=== PATIENT | female | born 1940 | race Caucasian/White ===

== ENCOUNTER → 2016-03-08 | Outpatient (CLI) | payer BC ==
[~2016-03-08] MED LIST: ASPCH81X PO; CALC500C70 PO; CLB/200 PO; DIPH25CA65 PO; ESCI10TA17 PO; GLUCTAB7 PO; MULT-506 PO; OMEGCAP2 PO; PRED1SUS OPL; SENNTAB23 PO
--- NOTE | 2016-03-08 16:27 | MAMMOGRAPHY REPORT ---
BILATERAL DIGITAL SCREENING MAMMOGRAM WITH CAD: 03/08/2016 CLINICAL HISTORY: Routine screening. Patient has no complaints. TECHNIQUE: Current study was also evaluated with a Computer Aided Detection (CAD) system. Bilatera l CC and MLO views were obtained. COMPARISON: Comparison is made to exams dated: 03/01/2015 mammogram, 02/28/2014 mammogram, 02/25/2013 m ammogram, 02/25/2012 mammogram, 02/05/2011 mammogram - [facility], and 06/14/2008. BREAST COMPOSITION: There are scattered areas of fibroglandular density in both breasts. FINDINGS: No suspicious masses, calcifications, or areas of architectural distortion are noted in e ither breast. There has been no significant interval change compared to prior exams. Scattered bilat eral benign-appearing calcifications are not significantly changed. Asymmetry in the right lateral breast on the cc view is stable dating back to at least the 2007 exam. IMPRESSION: ACR BI-RADS CATEGORY 2: BENIGN There is no mammographic evidence of malignancy. A 1 year screening mammogram is recommended. The p atient will receive written notification of the results. Approximately 10% of breast cancers are not detected with mammography. A negative mammographic repor t should not delay biopsy if a clinically suggestive mass is present. Candy Larry M.D. /:03/08/2016 14:20:22 Order Fulfillment Specialist: Tami NOR, M, [facility] letter sent: Normal 1/2 BI-RADS Code: ACR BI-RADS Category 2: Benign
== END | disposition home or self-care (01) ==
LOC: C.MAMM 13:59
PROVIDERS: ATTEND Obstetrics & Gynecology
DX: Z12.31 Encounter for screening mammogram for malignant neoplasm of breast (principal)

== ENCOUNTER → 2016-04-09 | Outpatient (CLI) | payer BC | END | disposition home or self-care (01) | LOC: C.LAB1850 14:08 | PROVIDERS: ATTEND Internal Medicine Infectious Disease | DX: Z20.5 Contact with and (suspected) exposure to viral hepatitis (principal) ==

== ENCOUNTER → 2016-05-01 | Day surgery (SDC) | payer BC ==
[2016-04-17 13:54] VITALS: Ht 156.2 cm; Wt 61.4 kg
[~2016-05-01] VITALS: Ht 156.2 cm; Wt 61.4 kg
[~2016-05-01] MED LIST changes: +500ML BSS 0.3ML EPI 1:1000PF IRRIG ONE; +ACETAMINOPHEN 325 MG TAB PO PRN; +AMVISC PLUS 0.8ML SYRINGE INT OCU ONE; +ATROPINE SULFATE 0.1 MG/ML 5ML SYR IV PRN; +AcetaZOLAMIDE 250 MG TAB PO SCH; +BETAXOLOL HCL 0.25% OP SUSP PER DROP CHARGE OPL SCH; +BRIMONIDINE TART 0.2% OP SOLN PER DROP CHARGE ONE; +BSS FLUSH ONE; +ENDOCOAT 0.85ML SYRINGE INT OCU ONE; +EpINEphrine INJ 1MG/ML AMP 1 MG/ML AMP ONE; +FENTANYL CITRATE INJ 50 MCG/1 ML 2 ML VIAL IV PRN; +LACTATED RINGER'S 1000ML 500 ML IV SCH; +LIDOCAINE 4% OP SOLN DROP CHARGE ONE; +LIDOCAINE 4% OP SOLN DROP CHARGE OPL SCH; +LIDOCAINE HCL 1% MPF 2 ML VIAL ONE; +MIDAZOLAM HCL 1 MG/ML 2ML VIAL ONE; +MIX: 4ML BSS 1ML EPI 1:1000 PF INSTIL ONE; +MOXIFLOXACIN OPH SOLN PER DROP CHARGE ONE; +OCUCOAT 1 ML SOLN IO ONE; +ONDANSETRON INJ 2 MG/ML 2 ML VIAL IV PRN; +ONDANSETRON INJ 2 MG/ML 2 ML VIAL ONE; +POVIDONE-IODINE OP SOLN 30 ML BTL ONE; +PROPARACAINE 0.5% OP SOLN PER DROP CHARGE OPL SCH; +TOBRAMYCIN/DEXAMETHASONE OPH OINT PER APPLN CHARGE ONE
--- NOTE | 2016-05-01 07:30 | History & Physical Bridge - SC ---
H&P Re-Evaluation Bridge Note: I have examined the patient, reviewed the History & Physical and in the interval since the performance of the History & Physical I have noted the following changes of clinical significance: No changes noted
[2016-05-01] MEDS: PHENYLEPHRINE HCL 2.5% OP SOLN PER DROP CHARGE OPL SCH ×2 (08:11→08:16)
[2016-05-01] MEDS: TROPICAMIDE 1% OP SOLN PER DROP CHARGE OPL SCH ×2 (08:12→08:17)
[2016-05-01] MEDS: CYCLOPENTOLATE HCL 1% OP SOLN PER DROP CHARGE OPL SCH ×2 (08:13→08:18)
[2016-05-01] MEDS: MOXIFLOXACIN OPH SOLN PER DROP CHARGE OPL SCH ×2 (08:14→08:24)
--- NOTE | 2016-05-01 08:59 | Discharge Instructions-SurgCtr ---
Discharge Instructions Date of Service May 01, 2016. Visit Reason for Visit: Cataract Left Eye Discharge Discharge Diagnosis / Problem: lens implant left eye Discharge Goals Goal(s): Improve function Activity Recommendations Activity Limitations: resume your previous activity Lifting Limitations: no more than 10 pounds Exercise/Sports Limitations: gradually increase as tolerated May Resume Sexual Activity: when tolerated Shower/Bathe: tomorrow Driving or Machine Use: resume 1 day after discharge Anesthesia . Post Anesthesia Instructions: If you have had General Anesthesia or IV Sedation: * Do not drive today. * Resume driving when surgeon permits. * Do not make important decisions or sign legal documents today. * Call surgeon for: 1. Temperature elevations greater than 101 degrees F. 2. Uncontrollable pain. 3. Excessive bleeding. 4. Persistent nausea and vomiting. 5. Medication intolerance (nausea, vomiting or rash). * For nausea and vomiting use only clear liquids such as: tea, soda, bouillon until nausea subsides, then gradually increase diet as tolerated. * If you have any concerns or questions, call your surgeon's office. If physician is unavailable and it is an emergency, call 911 or go to the nearest emergency room. . Instructions / Follow-Up Instructions / Follow-Up ACTIVITY RECOMMENDATIONS: * Light activities. * Mild irritation and blurred vision are common for the first few days. * You may walk outside, read, watch television. * Redness around the white part of the eye is common. MEDICATIONS: Resume previous medications unless instructed otherwise by your surgeon. * Take white Diamox (Acetazolamide) tablet at 1 pm today. Start all eye drops at 1 pm today: * Eye drops (today and tomorrow): Prednisone - one drop in operative eye every 3 hours while awake Ofloxacin - one drop in operative eye every 3 hours while awake SPECIAL CARE INSTRUCTIONS: * Tape plastic shield over eye to sleep at night. Call your doctor at with any concerns or problems. FOLLOW UP VISIT: Follow-up with Dr Kang at [place] office as scheduled. Diet Recommendations Home Diet: no limitations Procedures Procedures Performed: cataract extraction with lens implant Pending Studies Studies pending at discharge: no Medical Emergencies . Who to Call and When: Medical Emergencies: If at any time you feel your situation is an emergency, please call 911 immediately. . Non-Emergent Contact Non-Emergency issues call your: Senior Oracle Database Administrator Call Non-Emergent contact if: your pain is not controlled [phone] . . "Provider Documentation" section prepared by Buddy Kang.
--- NOTE | 2016-05-01 09:02 | [facility] Operative Report ---
Operative Report Date of Service May 01, 2016. Operative Report 1. PREOPERATIVE DIAGNOSIS: Senile Cortical Cataract, left eye. 2. POSTOPERATIVE DIAGNOSIS: Senile Cortical Cataract, left eye. 3. PROCEDURE: Phacoemulsification of left cataract with posterior chamber lens implant, type Bausch & Lomb, model iSert, power +18.5 diopters. ANESTHESIA: Local standby. SURGEON: Dr. Kang. COMPLICATIONS: None. OPERATING TIME: 10 minutes. 4. OPERATION AND FINDINGS: DESCRIPTION OF PROCEDURE: The left pupil was dilated. The anesthetic was administered using a topical technique. The left eye was prepped and draped. A speculum was placed. A clear corneal incision was formed. The chamber was filled with Amvisc Plus and Endocoat. Epinephrine solution was used. A paracentesis was placed. A capsulorrhexis was performed. The nucleus was hydrodissected. The lens was removed with phacoemulsification. Time was 4.04 seconds. The aspiration unit was used to remove the cortex. The capsule was filled with Amvisc Plus. The lens implant was folded and placed into the capsule. The incision was hydrated. The Amvisc was aspirated. The wound was secure. The chamber was deep. The pupil was round. Brimonidine, TobraDex ointment and Vigamox solution were placed. The speculum was removed. The patient was returned to the Recovery Room in stable condition. I attest to the content of the Intraoperative Record and any orders documented therein. Any exceptions are noted below. The scribe's documentation has been prepared in my presence, under my direction and personally reviewed by me in its entirety. I confirm that the note above accurately reflects all work, treatment, procedures, and medical decision making performed by me. I personally scribed for Buddy Kang M.D. ([email or web address]) on 05/01/16 at 09:02. Electronically submitted by Symone Turner ([email or web address]).
[2016-05-01 09:06] VITALS: TEMP 36.4
--- NOTE | 2016-05-01 09:32 | Anesthesia Progress Nt - [facility] ---
Anesthesia Post Op Note Date & Time May 01, 2016 at 09:31 Vital Signs Pain Intensity: 0 Vital Signs Past 12 Hours Date Time Temp Pulse Resp B/P Pulse Ox O2 Delivery O2 Flow Rate FiO2 05/01/16 09:06 36.4 66 16 138/81 98 Room Air 05/01/16 08:03 36.4 64 16 147/86 98 Room Air Notes Mental Status: alert / awake / arousable, participated in evaluation Pt Amnestic to Procedure: Yes Nausea / Vomiting: adequately controlled Pain: adequately controlled Airway Patency, RR, SpO2: stable & adequate BP & HR: stable & adequate Hydration State: stable & adequate Anesthetic Complications: no major complications apparent
[2016-05-01 09:35] VITALS: BP 146/84; PULSE 55; O2SAT 95
== END | disposition home or self-care (01) ==
LOC: X.SURG 07:55
PROVIDERS: ATTEND Specialist
DX: H25.10 Age-related nuclear cataract, unspecified eye (principal); Z88.8 Allergy status to other drugs, medicaments and biological substances

== ENCOUNTER → 2016-05-15 | Day surgery (SDC) | payer BC ==
[2016-05-10 10:00] VITALS: Ht 156.2 cm; Wt 61.4 kg
[~2016-05-15] VITALS: Ht 156.2 cm; Wt 61.4 kg
[~2016-05-15] MED LIST changes: -BETAXOLOL HCL 0.25% OP SUSP PER DROP CHARGE OPL SCH; +BETAXOLOL HCL 0.25% OP SUSP PER DROP CHARGE OPR SCH; +EpHEDrine SULFATE INJ 50 MG/ML AMP IV PRN; -FENTANYL CITRATE INJ 50 MCG/1 ML 2 ML VIAL IV PRN; -LIDOCAINE 4% OP SOLN DROP CHARGE OPL SCH; +LIDOCAINE 4% OP SOLN DROP CHARGE OPR SCH; -ONDANSETRON INJ 2 MG/ML 2 ML VIAL IV PRN; -ONDANSETRON INJ 2 MG/ML 2 ML VIAL ONE; -PROPARACAINE 0.5% OP SOLN PER DROP CHARGE OPL SCH; +PROPARACAINE 0.5% OP SOLN PER DROP CHARGE OPR SCH
[2016-05-15] MEDS: PHENYLEPHRINE HCL 2.5% OP SOLN PER DROP CHARGE OPR SCH ×2 (07:33→07:38)
[2016-05-15] MEDS: TROPICAMIDE 1% OP SOLN PER DROP CHARGE OPR SCH ×2 (07:34→07:39)
[2016-05-15] MEDS: CYCLOPENTOLATE HCL 1% OP SOLN PER DROP CHARGE OPR SCH ×2 (07:35→07:40)
[2016-05-15] MEDS: MOXIFLOXACIN OPH SOLN PER DROP CHARGE OPR SCH ×2 (07:36→07:46)
--- NOTE | 2016-05-15 08:23 | Discharge Instructions-SurgCtr ---
Discharge Instructions Date of Service May 15, 2016. Visit Reason for Visit: Right Cataract Discharge Discharge Diagnosis / Problem: lens implant right eye Discharge Goals Goal(s): Improve function Activity Recommendations Activity Limitations: resume your previous activity Lifting Limitations: no more than 10 pounds Exercise/Sports Limitations: gradually increase as tolerated May Resume Sexual Activity: when tolerated Shower/Bathe: tomorrow Driving or Machine Use: resume 1 day after discharge Anesthesia . Post Anesthesia Instructions: If you have had General Anesthesia or IV Sedation: * Do not drive today. * Resume driving when surgeon permits. * Do not make important decisions or sign legal documents today. * Call surgeon for: 1. Temperature elevations greater than 101 degrees F. 2. Uncontrollable pain. 3. Excessive bleeding. 4. Persistent nausea and vomiting. 5. Medication intolerance (nausea, vomiting or rash). * For nausea and vomiting use only clear liquids such as: tea, soda, bouillon until nausea subsides, then gradually increase diet as tolerated. * If you have any concerns or questions, call your surgeon's office. If physician is unavailable and it is an emergency, call 911 or go to the nearest emergency room. . Instructions / Follow-Up Instructions / Follow-Up ACTIVITY RECOMMENDATIONS: * Light activities. * Mild irritation and blurred vision are common for the first few days. * You may walk outside, read, watch television. * Redness around the white part of the eye is common. MEDICATIONS: Resume previous medications unless instructed otherwise by your surgeon. * Take white Diamox (Acetazolamide) tablet at 1 pm today. Start all eye drops at 1 pm today: * Eye drops (today and tomorrow): Prednisone - one drop in operative eye every 3 hours while awake Ofloxacin - one drop in operative eye every 3 hours while awake SPECIAL CARE INSTRUCTIONS: * Tape plastic shield over eye to sleep at night. Call your doctor at with any concerns or problems. FOLLOW UP VISIT: Follow-up with Dr Kang at [place] office as scheduled. Diet Recommendations Home Diet: no limitations Procedures Procedures Performed: cataract extraction with lens implant Pending Studies Studies pending at discharge: no Medical Emergencies . Who to Call and When: Medical Emergencies: If at any time you feel your situation is an emergency, please call 911 immediately. . Non-Emergent Contact Non-Emergency issues call your: Pattern Drum Maker Call Non-Emergent contact if: your pain is not controlled [phone] . . "Provider Documentation" section prepared by Buddy Kang.
--- NOTE | 2016-05-15 08:25 | [facility] Operative Report ---
Operative Report Date of Service May 15, 2016. Operative Report 1. PREOPERATIVE DIAGNOSIS: Senile Cortical Cataract, right eye. 2. POSTOPERATIVE DIAGNOSIS: Senile Cortical Cataract, right eye. 3. PROCEDURE: Phacoemulsification of right cataract with posterior chamber lens implant, type Bausch & Lomb, model Hoya [id number], power +18.5 diopters. ANESTHESIA: Local standby. SURGEON: Dr. Kang. COMPLICATIONS: None. OPERATING TIME: 10 minutes. 4. OPERATION AND FINDINGS: DESCRIPTION OF PROCEDURE: The right pupil was dilated. The anesthetic was administered using a topical technique. The right eye was prepped and draped. A speculum was placed. A clear corneal incision was formed. The chamber was filled with Amvisc Plus and Endocoat. Epinephrine solution was used. A paracentesis was placed. A capsulorrhexis was performed. The nucleus was hydrodissected. The lens was removed with phacoemulsification. Time was 3.58 seconds. The aspiration unit was used to remove the cortex. The capsule was filled with Amvisc Plus. The lens implant was folded and placed into the capsule. The incision was hydrated. The Amvisc was aspirated. The wound was secure. The chamber was deep. The pupil was round. Brimonidine, TobraDex ointment and Vigamox solution were placed. The speculum was removed. The patient was returned to the Recovery Room in stable condition. I attest to the content of the Intraoperative Record and any orders documented therein. Any exceptions are noted below. The scribe's documentation has been prepared in my presence, under my direction and personally reviewed by me in its entirety. I confirm that the note above accurately reflects all work, treatment, procedures, and medical decision making performed by me. I personally scribed for Buddy Kang M.D. ([email or web address]) on 05/15/16 at 08:25. Electronically submitted by Symone Turner ([email or web address]).
[2016-05-15 08:28] VITALS: TEMP 36.3
[2016-05-15 08:49] VITALS: BP 152/85; PULSE 59; O2SAT 95
--- NOTE | 2016-05-15 08:54 | Anesthesia Progress Nt - [facility] ---
Anesthesia Post Op Note Date & Time May 15, 2016 at 08:55 Vital Signs Pain Intensity: 6.0 Vital Signs Past 12 Hours Date Time Temp Pulse Resp B/P Pulse Ox O2 Delivery O2 Flow Rate FiO2 05/15/16 08:49 59 16 152/85 95 Room Air 05/15/16 08:28 36.3 58 12 153/88 96 Room Air 05/15/16 07:45 36.4 64 16 163/83 95 Room Air Notes Mental Status: alert / awake / arousable, participated in evaluation Pt Amnestic to Procedure: Yes Nausea / Vomiting: adequately controlled Pain: adequately controlled Airway Patency, RR, SpO2: stable & adequate BP & HR: stable & adequate Hydration State: stable & adequate Anesthetic Complications: no major complications apparent
== END | disposition home or self-care (01) ==
LOC: X.SURG 07:16
PROVIDERS: ATTEND Specialist
DX: H25.011 Cortical age-related cataract, right eye (principal); Z96.1 Presence of intraocular lens

== ENCOUNTER → 2016-06-04 | Day surgery (SDC) | payer BC ==
[2016-04-17 14:05] VITALS: BMI 25.0
[~2016-06-04] VITALS: Ht 154.9 cm; Wt 61.4 kg
[~2016-06-04] MED LIST changes: -500ML BSS 0.3ML EPI 1:1000PF IRRIG ONE; -ACETAMINOPHEN 325 MG TAB PO PRN; -AMVISC PLUS 0.8ML SYRINGE INT OCU ONE; -ATROPINE SULFATE 0.1 MG/ML 5ML SYR IV PRN; -AcetaZOLAMIDE 250 MG TAB PO SCH; -BETAXOLOL HCL 0.25% OP SUSP PER DROP CHARGE OPR SCH; -BRIMONIDINE TART 0.2% OP SOLN PER DROP CHARGE ONE; -BSS FLUSH ONE; -ENDOCOAT 0.85ML SYRINGE INT OCU ONE; -EpHEDrine SULFATE INJ 50 MG/ML AMP IV PRN; -EpINEphrine INJ 1MG/ML AMP 1 MG/ML AMP ONE; -LACTATED RINGER'S 1000ML 500 ML IV SCH; -LIDOCAINE 4% OP SOLN DROP CHARGE ONE; -LIDOCAINE 4% OP SOLN DROP CHARGE OPR SCH; -LIDOCAINE HCL 1% MPF 2 ML VIAL ONE; +LIDOCAINE HCL 2% 2 ML VIAL (20MG/ML) ONE; -MIX: 4ML BSS 1ML EPI 1:1000 PF INSTIL ONE; -MOXIFLOXACIN OPH SOLN PER DROP CHARGE ONE; -OCUCOAT 1 ML SOLN IO ONE; +ONDANSETRON INJ 2 MG/ML 2 ML VIAL ONE; -POVIDONE-IODINE OP SOLN 30 ML BTL ONE; -PROPARACAINE 0.5% OP SOLN PER DROP CHARGE OPR SCH; +PROPOFOL IV EMULSION 10 MG/ML 20 ML VIAL IV ONE; -TOBRAMYCIN/DEXAMETHASONE OPH OINT PER APPLN CHARGE ONE
[2016-06-04 11:42] VITALS: Ht 154.9 cm; Wt 61.4 kg
[2016-06-04 11:44] VITALS: TEMP 36.4
--- NOTE | 2016-06-04 12:55 | Endo History and Physical ---
History & Physical Date of Service: Jun 04, 2016. Chief Complaint: ABDOMINAL PAIN Referring Physician: DR BYRD History of Present Illness 75 yo CF who presents for Colonoscopy secondary to abdominal pain. Past Surgical History Hx Cardiac Surgery: No Hx Abdominal Surgery: Yes (APPY) Hx of Implantable Prosthesis: No Hx Post-Op Nausea and Vomiting: Yes (HAD NAUSEA S/P LT CATARACT) Hx Cancer Surgery: No Hx Thoracic Surgery: No Hx Orthopedic: No Hx Urinary Tract Surgery: No Family History Polyp Social History Smoking Status: Former Smoker Hx Substance Use: No Hx Alcohol Use: Yes (1 DRINK DAILY (MOST DAYS)) Allergies Coded Allergies: Latex (Verified Allergy, Unknown, NOSE RUNS, EYES WATER, 05/15/16) Pseudoephedrine (Verified Allergy, Unknown, "CRAZY FEELING", 05/15/16) Current Medications Reported Home Medications Medications Dose Route/Sig Max Daily Dose Days Date Category Omnipred (Prednisolone Acetate (Ophth)) 1 % Randi 1 Drops OPL TID 05/10/16 Reported Fish Oil ([place]-3 Fatty Acids) 1 Cap Cap 1 Cap PO QAM 04/17/16 Reported Stool Softener (Sennosides-Docusate Sodium) 1 Tab Tab 1 Tab PO QPM 04/17/16 Reported Multivitamin (Multivitamins) Tab 1 Tab PO QAM 04/17/16 Reported Glucosamine Chondroitin (Iunmmudobga-Gsjeubryvnk-Col C-) 1 Tab Tab 1 Tab PO BID 04/17/16 Reported Lexapro (Escitalopram Oxalate) 10 Mg Tab 10 Mg PO QAM 04/17/16 Reported CeleBREX (Celecoxib) 200 Mg Cap 200 Mg PO QAM 04/17/16 Reported Os-Satish 500 Plus D (Calcium/Vitamin D) Tab 1 Tab PO BID 04/17/16 Reported Benadryl Allergy (Diphenhydramine Hcl) 25 Mg Cap 1 Cap PO HS 04/17/16 Reported Aspirin Chewable (Aspirin) 81 Mg Chew 81 Mg PO QAM 04/17/16 Reported Vital Signs Weight (Kilograms): 61.36 Height (Feet): 5 Height (Inches): 1 Date Time Temp Pulse Resp B/P Pulse Ox O2 Delivery O2 Flow Rate FiO2 06/04/16 11:44 36.4 68 16 157/79 96 Room Air Physical Exam General Appearance: WD/WN, no apparent distress Respiratory/Chest: Auscultation: breath sounds normal Cardiovascular: Heart Auscultation: RRR Abdomen: Bowel Sounds: normal Inspection & Palpation: soft, non-distended, no tenderness, guarding & rebound Assessment and Plan Assessment: 75 yo CF who presents for Colonoscopy secondary to abdominal pain. Plan: Proceed with colonoscopy.
--- NOTE | 2016-06-04 13:52 | GI REPORT ---
Procedure Date: 06/04/2016 1:13 PM Procedure: Colonoscopy Indications: Generalized abdominal pain Medicines: Monitored Anesthesia Care Complications: No immediate complications. Estimated Blood Loss: Estimated blood loss: none. Procedure: Pre-Anesthesia Assessment: - Prior to the procedure, a History and Physical was performed, and patient medications and allergies were reviewed. The patient's tolerance of previous anesthesia was also reviewed. The risks and benefits of the procedure and the sedation options and risks were discussed with the patient. All questions were answered, and informed consent was obtained. Prior Anticoagulants: The patient has taken aspirin, last dose was 1 day prior to procedure. ASA Grade Assessment: II - A patient with mild systemic disease. After reviewing the risks and benefits, the patient was deemed in satisfactory condition to undergo the procedure. After I obtained informed consent, the scope was passed under direct vision. Throughout the procedure, the patient's blood pressure, pulse, and oxygen saturations were monitored continuously. The Scope was introduced through the anus and advanced to the terminal ileum. The colonoscopy was performed without difficulty. The patient tolerated the procedure well. The quality of the bowel preparation was good. The terminal ileum, ileocecal valve, appendiceal orifice, and rectum were photographed. Findings: Three flat polyps were found in the ascending colon. The polyps were 6 to 11 mm in size. These polyps were removed with a hot snare. Resection and retrieval were complete. To prevent bleeding after the polypectomy, two hemostatic clips were successfully placed (MR conditional). There was no bleeding at the end of the procedure. Multiple small-mouthed diverticula were found in the sigmoid colon. Non-bleeding internal hemorrhoids were found during retroflexion. The hemorrhoids were small. Impression: - Three 6 to 11 mm polyps in the ascending colon, removed with a hot snare. Resected and retrieved. Clips (MR conditional) were placed. - Diverticulosis in the sigmoid colon. - Non-bleeding internal hemorrhoids. Recommendation: - Resume previous diet. - Continue present medications. - Repeat colonoscopy for surveillance based on pathology results. - Return to primary care physician as previously scheduled. Eduin Herbert DO 06/04/2016 1:51:20 PM This report has been signed electronically. Note Initiated On: 06/04/2016 1:13 PM I attest to the content of the Intraoperative Record and orders documented therein, exceptions below
--- NOTE | 2016-06-04 13:53 | Discharge Instructions ---
Endoscopy Patient Instructions Date / Procedure(s) Performed Jun 04, 2016. Colonoscopy Allergy Information Coded Allergies: Latex (Verified Allergy, Unknown, NOSE RUNS, EYES WATER, 05/15/16) Pseudoephedrine (Verified Allergy, Unknown, "CRAZY FEELING", 05/15/16) Discharge Date / Findings Jun 04, 2016. Colon polyps Diverticulosis Internal hemorrhoids Medication Instructions Stopped Medication(s): ASPIRIN AST DOSE 06/03/16 OK to resume all medications today as prescribed. Reported Home Medications Medications Dose Route/Sig Max Daily Dose Days Date Category Omnipred (Prednisolone Acetate (Ophth)) 1 % Randi 1 Drops OPL TID 05/10/16 Reported Fish Oil ([place]kerel-3 Fatty Acids) 1 Cap Cap 1 Cap PO QAM 04/17/16 Reported Stool Softener (Sennosides-Docusate Sodium) 1 Tab Tab 1 Tab PO QPM 04/17/16 Reported Multivitamin (Multivitamins) Tab 1 Tab PO QAM 04/17/16 Reported Glucosamine Chondroitin (Jgsnealwmhr-Inlzqctkmzw-Ens C-) 1 Tab Tab 1 Tab PO BID 04/17/16 Reported Lexapro (Escitalopram Oxalate) 10 Mg Tab 10 Mg PO QAM 04/17/16 Reported CeleBREX (Celecoxib) 200 Mg Cap 200 Mg PO QAM 04/17/16 Reported Os-Satish 500 Plus D (Calcium/Vitamin D) Tab 1 Tab PO BID 04/17/16 Reported Benadryl Allergy (Diphenhydramine Hcl) 25 Mg Cap 1 Cap PO HS 04/17/16 Reported Aspirin Chewable (Aspirin) 81 Mg Chew 81 Mg PO QAM 04/17/16 Reported Provider Instructions Activity Restrictions - No exercising or heavy lifting for 24 hours. - Do not drink alcohol the day of the procedure. - Do not drive a car or operate machinery until the day after the procedure. - Do not make any important decisions or sign important papers in 24 hours after the procedure. Following Day: - Return to full activity which may include returning to work/school. Diet Start your diet with liquids and light foods (jello, soup, juice, toast). Then eat your usual diet if not nauseated. Treatment For Common After Affects For mild abdominal pain, bloating, or excessive gas: - Rest - Eat lightly - Lie on right side Follow-Up Information Follow-up with DR BYRD as scheduled Anesthesia Information What You Should Know You have had a procedure that required some medicine to reduce anxiety and discomfort. This treatment is called moderate sedation. After receiving the treatment, you may be sleepy, but you will be able to breathe on your own. The effects of the treatment may last for several hours. Follow these instructions along with Activity/Diet recommendations noted above: * Do NOT do anything where dizziness or clumsiness would be dangerous. * Rest quietly at home today, then you can be up and about tomorrow. * Have a responsible person stay with you the rest of today. * You may have had an I.V. today. If so, you may take the dressing off later today. Recommendations Call your doctor if: * Trouble breathing * Continuous vomiting for more than 24 hours * Temperature above 101 degrees * Severe abdominal pain or bloating * Pain not relieved by pain medicine ordered * There is increased drainage or redness from any incision * A large amount of rectal bleeding greater than 2-3 tablespoons. (If you had a polyp/s removed or have hemorrhoids, a small amount of blood - from the rectum is to be expected.) * You have any unanswered questions or concerns. IN THE EVENT OF A SERIOUS EMERGENCY, GO TO THE NEAREST EMERGENCY ROOM Your discharge instructions were prepared by provider Eduin Herbert. Patient Instructions Signature Page Anuja Polk Patient (or Guardian) Signature/Date: I have read and understand the instructions given to me by my caregivers. Caregiver/RN/Doctor Signature/Date: The above-named patient and/or guardian has received patient instructions on this date. + Original Patient Signature Page (only) stays with chart. Please make copy for patient.
--- NOTE | 2016-06-04 14:09 | Anesthesiology Progress Note ---
Anesthesia Post Op Note Date & Time Jun 04, 2016 at 14:08 Vital Signs Pain Intensity: 0 Vital Signs Past 12 Hours Date Time Temp Pulse Resp B/P Pulse Ox O2 Delivery O2 Flow Rate FiO2 06/04/16 13:56 61 18 117/68 97 Room Air 06/04/16 11:44 36.4 68 16 157/79 96 Room Air Notes Mental Status: alert / awake / arousable, participated in evaluation Pt Amnestic to Procedure: Yes Nausea / Vomiting: adequately controlled Pain: adequately controlled Airway Patency, RR, SpO2: stable & adequate BP & HR: stable & adequate Hydration State: stable & adequate Anesthetic Complications: no major complications apparent
[2016-06-04 14:25] VITALS: BP 149/77; PULSE 62; O2SAT 97
== END | disposition home or self-care (01) ==
LOC: C.GI 11:11
PROVIDERS: ATTEND Internal Medicine
DX: D12.2 Benign neoplasm of ascending colon (principal); K57.30 Diverticulosis of large intestine without perforation or abscess without bleeding; K64.8 Other hemorrhoids; R10.84 Generalized abdominal pain; Z87.891 Personal history of nicotine dependence; Z79.82 Long term (current) use of aspirin; Z79.899 Other long term (current) drug therapy

== ENCOUNTER → 2017-01-23 | Outpatient (CLI) | payer BC ==
[~2017-01-23] MED LIST changes: -LIDOCAINE HCL 2% 2 ML VIAL (20MG/ML) ONE; -MIDAZOLAM HCL 1 MG/ML 2ML VIAL ONE; -ONDANSETRON INJ 2 MG/ML 2 ML VIAL ONE; -PROPOFOL IV EMULSION 10 MG/ML 20 ML VIAL IV ONE
[2017-01-23 16:58] LABS: BASO % 0.8 %; BASO ABS # 0.07 K/uL (0-0.2); COMPLETE YES; EOS % 5.2 %; HEMATOCRIT 39.1 % (37-47); IG% 0.1 %; LYMPH % 25.8 %; LYMPH ABS # 2.19 K/uL (1.2-3.4); MEAN CORPUSCULAR HEMOGLOBIN 34.1 pg (25-34); MEAN CORPUSCULAR HGB CONC 34.8 g/dl (32-36); MEAN PLATELET VOLUME 10.3 fL (7.4-10.4); NEUT % 59.1 %; PLATELET COUNT 259 K/uL (130-400); RED BLOOD COUNT 3.99 M/uL (4.2-5.4); WHITE BLOOD COUNT 8.48 K/uL (4.8-10.8)
[2017-01-23 17:06] LABS: ALT/SGPT 30 U/L (12-78); BLOOD UREA NITROGEN 20 mg/dl (7-18); BUN/CREATININE RATIO 23.4 (10-20); CARBON DIOXIDE 29 mmol/L (21-32); CHLORIDE 103 mmol/L (98-107); CHOLESTEROL 222 mg/dl (0-200); CREATININE 0.85 mg/dl (0.60-1.20); GLUCOSE 99 mg/dl (70-99); SODIUM 137 mmol/L (136-145); TRIGLYCERIDES 212 mg/dl (0-150); VERY LOW DENSITY LIPOPROT CALC 42 mg/dl
[2017-01-23 17:16] LABS: ALB/GLOB RATIO 1.2 (0.9-2); ALKALINE PHOSPHATASE 33 U/L (45-117); AST/SGOT 18 U/L (15-37); CHOLESTEROL/HDL RATIO 3.5; HDL CHOLESTEROL 63 mg/dl; LDL CHOLESTEROL CALCULATED 117 mg/dl
== END | disposition home or self-care (01) ==
LOC: C.LABBC 14:32
PROVIDERS: ATTEND Internal Medicine
DX: M81.0 Age-related osteoporosis without current pathological fracture (principal); M13.0 Polyarthritis, unspecified; G47.00 Insomnia, unspecified; E78.5 Hyperlipidemia, unspecified; E03.9 Hypothyroidism, unspecified

== ENCOUNTER → 2017-03-03 | Outpatient (CLI) | payer BC | LOC: C.MAMM 15:07 | PROVIDERS: ATTEND Internal Medicine | DX: M81.0 Age-related osteoporosis without current pathological fracture (principal) ==

== ENCOUNTER → 2017-04-01 | Outpatient (CLI) | payer BC ==
--- NOTE | 2017-04-02 15:24 | MAMMOGRAPHY REPORT ---
BILATERAL DIGITAL SCREENING MAMMOGRAM TOMOSYNTHESIS WITH CAD: 04/01/2017 CLINICAL HISTORY: Routine screening. Patient has no complaints. TECHNIQUE: Breast tomosynthesis in addition to standard 2D mammography was performed. Current study was also evaluated with a Computer Aided Detection (CAD) system. COMPARISON: Comparison is made to exams dated: 03/08/2016 mammogram, 03/01/2015 mammogram, 02/28/2014 m ammogram, 02/25/2013 mammogram, 02/25/2012 mammogram, and 02/05/2011 mammogram - [facility]. BREAST COMPOSITION: There are scattered areas of fibroglandular density in both breasts. FINDINGS: The parenchymal pattern is unchanged. There are a few benign coarse calcifications which are stable bilaterally. No developing mass, architectural distortion or cluster of suspicious microc alcifications is seen in either breast. IMPRESSION: ACR BI-RADS CATEGORY 2: BENIGN There is no mammographic evidence of malignancy. A 1 year screening mammogram is recommended. The pa tient will receive written notification of the results. Approximately 10% of breast cancers are not detected with mammography. A negative mammographic report should not delay biopsy if a clinically suggestive mass is present. Juanita Leslie M.D. ay/:04/01/2017 17:09:38 Compressor Repairer: Elizabeth NO(Rodney)(M), [facility] letter sent: Normal 1/2 BI-RADS Code: ACR BI-RADS Category 2: Benign
== END | disposition home or self-care (01) ==
LOC: C.MAMM 14:30
PROVIDERS: ATTEND Internal Medicine
DX: Z12.31 Encounter for screening mammogram for malignant neoplasm of breast (principal)